=== PATIENT | male | born 1960 | race Caucasian/White ===

== ENCOUNTER 2023-06-26 09:09 | Outpatient (OUT) | payer BC, SELFPAY ==
--- NOTE | 2023-06-26 09:23 | XR_ITS ---
[address] [address] Patient Name: KWABENA TARIQ MRN: [id number] date: 1960 Sex: M Assigned Patient Location: [facility] Current Patient Location: Accession/Order Number: [id number] Exam Date: 06/26/2023 09:18 Report Date: 06/27/2023 08:54 At the request of: ANNE STOCKTON Procedure: XR shoulder RT min 2V PROCEDURE: XR shoulder RT min 2V COMPARISON: None. HISTORY: Pain In Right Shoulder M25.511 FINDINGS: BONES:No acute fracture or dislocation. Mild degenerative changes of the acromioclavicular and glenohumeral joints SOFT TISSUES:Negative. No visible soft tissue swelling. EFFUSION:None visible. OTHER: Negative. XR/XR shoulder RT min 2V IMPRESSION: Mild degenerative changes Electronically authenticated by: KWABENA ZEPEDA Date: 06/27/2023 08:54
== END 2023-06-26 09:10 | disposition home or self-care (01) ==
LOC: RAD 09:12
PROVIDERS: PCP Nurse Practitioner Family; Visit Provider Nurse Practitioner Family
DX: M25.511 Pain in right shoulder (principal)
CPT/HCPCS: 73030

== ENCOUNTER 2023-07-08 07:18 | Outpatient (OUT) | payer BC, SELFPAY ==
--- NOTE | 2023-07-08 | XR_ITS ---
The [address] [address] Patient Name: KWABENA TARIQ MRN: [id number] date: 1960 Sex: M Assigned Patient Location: [facility] Current Patient Location: [facility] Accession/Order Number: [id number] Exam Date: 07/08/2023 07:31 Report Date: 07/08/2023 07:52 At the request of: ANNE STOCKTON Procedure: XR foreign body eye Exam: X-ray foreign body EXAMINATION: 2 view orbits. HISTORY: Pre-MRI FINDINGS: No evidence of metallic foreign bodies. Osseous structures are intact. Electronically authenticated by: Carol OBRIEN Date: 07/08/2023 07:52
--- NOTE | 2023-07-08 | MR_ITS ---
[address] [address] Patient Name: KWABENA TARIQ MRN: [id number] date: 1960 Sex: M Assigned Patient Location: [facility] Current Patient Location: [facility] Accession/Order Number: [id number] Exam Date: 07/08/2023 07:39 Report Date: 07/08/2023 08:35 At the request of: ANNE STOCKTON Procedure: MR shoulder RT wo con EXAMINATION: MR shoulder RT wo con HISTORY: M25.511; Right shoulder pain COMPARISON: No relevant comparison available. TECHNIQUE: A variety of imaging planes and parameters were utilized for visualization of suspected pathology. Imaging was performed without or with contrast as indicated by examination type. FINDINGS: ROTATOR CUFF REGION CUFF TENDONS: Complete disruption of the supraspinatus tendon at its humeral head insertion with 3.0 cm retraction. CUFF MUSCLES: Moderate edema, or possibly small amount of hemorrhage within supraspinous muscle. DELTOID: Normal. No significant atrophy or tear. LONG BICEPS TENDON: No appreciable tear, retraction, or surrounding fluid. Its glenoid attachment is obscured. LABRUM/BICEPS ANCHOR SUPERIOR: No visible labral tear or biceps anchor pathology. ANTERIOR/INFERIOR: No visible tear or attrition. POSTERIOR: No posterior labrum abnormality. CAPSULE No visible capsular laxity or thickening. 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 AC LIGAMENTS: Normal acromioclavicular ligament. CC LIGAMENTS: Normal coracoclavicular ligaments. ACROMION: Normal horizontal (Type I) configuration. SUBACROMIAL BURSA: Large amount of fluid within bursa. HYALINE CARTILAGE: Normal. No visible cartilage narrowing or focal defect. OTHER BONES: Normal proximal humerus, glenoid, and coracoid. OTHER OBSERVATIONS: Negative. No other significant findings or glenohumeral effusion. MR/MR shoulder RT wo con IMPRESSION: 1. Complete tear and retraction of the supraspinatus tendon with edema or small amount of hemorrhage within supraspinatus muscle suggesting muscle injury as well. 2. Large amount of fluid within the subacromial-subdeltoid bursa secondary to supraspinatus tendon disruption. 3. Moderate degenerative changes of the acromioclavicular joint. Electronically authenticated by: RINA GARCIA Date: 07/08/2023 08:35
== END 2023-07-08 07:19 | disposition home or self-care (01) ==
LOC: RAD 07:18
PROVIDERS: PCP Nurse Practitioner Family; Visit Provider Nurse Practitioner Family
DX: M25.511 Pain in right shoulder (principal); M75.121 Complete rotator cuff tear or rupture of right shoulder, not specified as traumatic; Z77.011 Contact with and (suspected) exposure to lead
CPT/HCPCS: 70030; 73221

== ENCOUNTER 2023-08-11 16:05 | Outpatient (OUT) | payer BC, SELFPAY ==
--- OUTSIDE RECORDS SUMMARY | 2023-08-11 16:10 | XMS_ITS | CCD ---
Author Name Unknown Address [address] [place] [address] Organization [facility] Care Team Providers Care Window Caser Name Role Phone SAVANNA, DR SONG Olea Admitting Unavailable SAVANNA, DR SONG Olea Consulting Unavailable SAVANNA, DR SONG Olea Attending Unavailable MAYTE, DR WARE Primary Care Unavailable Gabby Elmore Consulting Unavailable JUSTIN, CARLY Primary Care Unavailable JESSICA, DR LUIS Terrell Admitting Unavailable JESSICA, DR LUIS Terrell Consulting Unavailable JESSICA, DR LUIS Terrell Attending Unavailable MARIO, NIMCO ROJAS Consulting Unavailable CLAUDIA, ROSA Olivera Consulting Unavailable Todd Jacome Consulting Unavailable CASIE WYMAN Consulting Unavailable SAVANNA, DR SONG Olea Admitting Unavailable SAVANNA, DR SONG Olea Attending Unavailable MAYTE, DR WARE Primary Care Unavailable MARIO, NMICO ROJAS Consulting Unavailable Todd Jacome Consulting Unavailable JANETH, DR LIM Admitting Unavailable JANETH, DR LIM Attending Unavailable JOSE, DR RINA Olea Consulting Unavailable MAYTE, DR WARE Primary Care Unavailable JANETH, DR LIM Consulting Unavailable Kath ENERGY EFFICIENCY ENGINEER-MARY, Carly Campos Primary Care Provider ELENA ESCOBEDO Attending Unavailable ELENA ESCOBEDO Attending Unavailable CARLY STOCKTON Referring Unavailable CARLY STCOKTON Primary Care Unavailable KWABENA CAMACHO Attending Unavailable KWABENA CAMACHO Referring Unavailable CARLY STOCKTON Primary Care Unavailable Allergies Allergy Classification Reported Allergen(s) Allergy Type Date of Onset Reaction(s) Facility (2 sources) Adhesive Tape-Silicones; Translations: [ADHESIVE TAPE-SILICONES] Propensity to adverse reactions to drug 08-07-2023 [facility] Medications Current Medications Medication Drug Class(es) Dates Sig (Normalized) Sig (Original) nabumetone 500 mg oral tablet (1 source) Nonsteroidal Anti-inflammatory Drug take 1 tablet by mouth in the morning, then take 1 tablet by mouth at bedtime nabumetone (RELAFEN) 500 mg tablet Take 1 tablet (500 mg total) by mouth in the morning and 1 tablet (500 mg total) before bedtime. 0 Active omega 1-vmg-kra-fish oil (Fish OiL) 300-1,000 mg capsule (1 source) take 300-1000 mg by mouth in the morning omega 1-rzw-wpq-fish oil (Fish OiL) 300-1,000 mg capsule Take 1 capsule by mouth in the morning. 0 Active selenium 50 mcg tablet (1 source) take 1 tablet by mouth in the morning selenium 50 mcg tablet Take 1 tablet (50 mcg total) by mouth in the morning. 0 Active Problems Active Problems Problem Classification Problem Date Documented Da te Episodic/Chronic E Codes: Natural/environment (2 sources) Exposure to other specified factors, initial encounter; Translations: [Other and unspecified overexertion or strenuous movements or postures, initial encounter] Onset: 12-28-2020 Episodic Other injuries and conditions due to external causes (4 sources) Food in esophagus causing other injury, initial encounter; Translations: [FOOD ESOPH CAUS OTH INJURY INIT ENC] Onset: 07-09-2021 Episodic Spondylosis; intervertebral disc disorders; other back problems (1 source) Dorsalgia, unspecified; Translations: [DORSALGIA UNSPECIFIED] Onset: 05-04-2021 Episodic Unclassified (1 source) CONTACT W/AND (SUSP) EXPOS COVID-19; Translations: [CONTACT W/AND (SUSP) EXPOS COVID-19] Onset: 07-19-2021 Past or Other Problems Problem Classification Problem Date Documented Da te Episodic/Chronic Abdominal pain (5 sources) Unspecified abdominal pain; Translations: [Flank pain] Onset: 05-02-2021 Episodic Calculus of urinary tract (4 sources) Calculus of kidney; Translations: [Personal history of urinary calculi] Onset: 05-03-2021 04-30-2022 Episodic Other connective tissue disease (3 sources) Pain in left lower leg; Translations: [PAIN IN LEFT LOWER LEG] Onset: 12-26-2020 Episodic Sprains and strains (1 source) Strain of other muscle(s) and tendon(s) at lower leg level, left leg, initial encounter; Translations: [STRAIN OTH MSC TEND LOW LT LEG INIT] Onset: 12-28-2020 Episodic Results Test Name Value Interpretation Reference Range Facility ECG 12 leadon 08-07-2023 [facility] Covid-19 PCR (CVDTB)on 06-14 SARS-CoV-2 (COVID-19) RNA LULI+probe Ql (Unsp spec) Not detected Normal NOT DETECTED [facility] Comment on above: Result Comment: When diagnostic testing is negative, the possibility of a false negative should be considered in the context of a patient's recent exposures and the presence of clinical signs and symptoms consistent with SARS-CoV-2. This test is not yet approved or cleared by the [place] Food and Drug Administration (FDA). This test was developed by [facility] [employer], [place], [place]. The performance characteristics of this test were validated by [facility]. The results are not intended to be used as the sole means for clinical diagnosis or patient management decisions. [facility] is authorized under Clinical Laboratory Improvement Amendments (CLIA) to perform high- complexity testing. This test is not yet approved or cleared by the [place] FDA. When there are no FDA-approved or cleared tests available, and other criteria are met, FDA can make tests available under an emergency access mechanism called an Emergency Use Authorization (EUA). The EUA for this test is supported by the [place] of Health and Human Service's declaration that circumstances exist to justify the emergency use of in vitro diagnostics for the detection and/or diagnosis of the virus that causes COVID-19. This EUA will remain in effect for the duration of the COVID-19 declaration justifying emergency of IVDs, unless it is terminated or revoked by the FDA (after which the test may no longer be used). Performed By: #### [facility] #### [facility] [address] [place] [address] Dr. Bill Macedo XR CHEST 1 Von 07-09-2021 XR CHEST 1 V EXAM: XR CHEST 1 V HISTORY: The patient is a 61-year-old male with epigastric pain. COMPARISON: None. FINDINGS: The lungs are well-inflated and clear with no confluent airspace infiltrates, pleural effusions, or pneumothoraces. The heart and mediastinum are within normal limits. The trachea is midline. IMPRESSION: No acute cardiopulmonary abnormalities. Electronically authenticated by: TODD JACOME Date: 2021-07-09 18:31 Normal [facility] B-Type Natriuretic Peptideon 05-04-2021 Natriuretic peptide B (Bld) [Mass/Vol] 44.0 pg/mL Normal 5-100 [facility] Comment on above: Result Comment: PERF ORMED BY: [place] [address] PATHOLOGIST COMPLIANCE ANALYST DAVIN AYOUB M.D. Performed By: #### B FUEL VERIFICATION TECHNICIAN, LACTIC, HS TROP #### [address] thoracic spine wo conon 1 CT thoracic spine wo con [facility] [place] [address] [place] [address] CT Scan Report Signed Patient: Kwabena Tariq MR#: [id number] : 1960 Acct:[id number] Age/Sex: 60 / M ADM Date: 05/04/21 Loc: ER Room: Type: [facility] ER Attending Dr: Ordering Provider: Paul Richard DO Date of Service: 05/04/21 CT/CT thoracic spine wo con: back pain ([id number]) CT/CT abdomen pelvis w con: abd pain ([id number]) CT/CT lumbar spine wo con: back pain Copies to: Paul Richard DO CT abdomen and pelvis, CT thoracic spine, and CT lumbar spine 05/04/2021. CLINICAL DATA: Left flank pain. Mid and low back pain. History of kidney stones. TECHNIQUE: CT of the abdomen and pelvis was performed with intravenous contrast and axial, sagittal, and coronal reconstructions were created and reviewed. CT of the thoracic spine and CT of the lumbar spine were performed without contrast and axial, sagittal, coronal, and 3-dimensional reconstructions were created and reviewed. These CT exams were performed using one or more of the following dose reduction techniques: Automated exposure control, adjustment of the mA and/or kV according to patient size, or use of iterative reconstruction technique. COMPARISON: None. ABDOMEN AND PELVIS FINDINGS: Images of the lower chest demonstrate mild atelectasis or scarring in the lung bases. The liver, spleen, pancreas, and both adrenal glands appear unremarkable. There is a 10 mm nonobstructing calculus in the mid to upper pole of the right kidney. Another 4 mm nonobstructing calculus is noted in the lower pole of the right kidney. There is a 3 mm nonobstructing calculus in the upper pole of the left kidney. No ureteral calculus is identified. No hydronephrosis or hydroureter is seen. No perinephric or periureteral infiltrative changes are visualized. The urinary bladder is distended and appears unremarkable. No acute intestinal abnormality is identified. The appendix appears unremarkable. No free intra-abdominal air or ascites is seen. No abdominal wall abnormality is visualized. CT/CT abdomen pelvis w con IMPRESSION: 1. Bilateral nephrolithiasis. 2. No ureteral calculus or obstructive uropathy. THORACIC SPINE FINDINGS: There is mild thoracic spinal curvature. Vertebral alignment is normal. Disc space narrowing and discovertebral degenerative changes are identified. Facet arthritis is also seen. No acute vertebral fracture is visualized. The paraspinal soft tissues appear unremarkable. LUMBAR SPINE FINDINGS: There is mild lumbar spinal curvature. Vertebral alignment is normal. Disc space narrowing and discovertebral degenerative changes are identified. Facet arthritis is also seen. No acute vertebral fracture is visualized. No spondylolysis is noted on the right or left. The sacroiliac joints are intact. IMPRESSION: 1. Mild thoracolumbar spinal curvature. 2. Disc space narrowing, discovertebral degenerative changes, and facet arthritis. 3. No acute bony abnormality. Impression dictated by: Luis Calabrese Jr., M.D.05/04/2021 3:23 PM Dictation Location: [place] [address] Transcribed By: [facility] 05/04/21 1523 Dictated By: Luis Calabrese Jr, MD 05/04/21 1504 Signed By: 05/04/21 1523 Normal [facility] Complete Blood Count Auto Di ffon 05-04-2021 Basophils (Bld) [#/Vol] 0.0 10*3/uL Normal 0.0-0.2 [facility] Comment on above: Result Comment: PERF ORMED BY: [facility] [address] [place] [address] PATHOLOGIST COMPLIANCE ANALYST DAVIN AYOUB M.D. Performed By: #### C MP, CBC, LIPASE #### [facility] [address] [place] [address] [place] Basophils/100 WBC (Bld) 0.4 % Normal . [facility] Comment on above: Performed By: #### C MP, CBC, LIPASE #### [facility] [address] Eosinophils (Bld) [#/Vol] 0.1 10*3/uL Normal 0.0-0.45 [facility] Comment on above: Performed By: #### C MP, CBC, LIPASE #### [address] Eosinophils/100 WBC (Bld) 1.6 % Normal . [facility] Comment on above: Performed By: #### C MP, CBC, LIPASE #### [address] Erythrocyte distribution width (RBC) [Ratio] 14.3 % Normal 12.0-14.8 [facility] Comment on above: Performed By: #### C MP, CBC, LIPASE #### [address] Hematocrit (Bld) [Volume fraction] 41.8 % Normal 38.8-50.0 [facility] Comment on above: Performed By: #### C MP, CBC, LIPASE #### [address] Hemoglobin (Bld) [Mass/Vol] 14.2 g/dL Normal 13.0-17.0 [facility] Comment on above: Performed By: #### C MP, CBC, LIPASE #### [place] [address] [place] Lymphocytes (Bld) [#/Vol] 1.7 10*3/uL Normal 1.00-4.8 [facility] Comment on above: Performed By: #### C MP, CBC, LIPASE #### [address] Lymphocytes/100 WBC (Bld) 31.7 % Normal . [facility] Comment on above: Performed By: #### C MP, CBC, LIPASE #### [facility] [address] MCH (RBC) [Entitic mass] 29.4 pg Normal 27.5-35.2 [facility] Comment on above: Performed By: #### C MP, CBC, LIPASE #### [facility] [address] MCV (RBC) [Entitic vol] 86.9 fL Normal 83.5-101 [facility] Comment on above: Performed By: #### C MP, CBC, LIPASE #### [address] Mean Corpuscular HGB Conc 33.8 g/dL Normal 32.5-35.6 [facility] Comment on above: Performed By: #### C MP, CBC, LIPASE #### [address] Monocytes (Bld) [#/Vol] 0.5 10*3/uL Normal 0.0-0.8 [facility] Comment on above: Performed By: #### C MP, CBC, LIPASE #### [address] Monocytes/100 WBC (Bld) 9.4 % Normal . [facility] Comment on above: Performed By: #### C MP, CBC, LIPASE #### [address] Neutrophils (Bld) [#/Vol] 3.0 10*3/uL Normal 1.8-7.7 [facility] Comment on above: Performed By: #### C MP, CBC, LIPASE #### [address] Neutrophils/100 WBC (Bld) 56.9 % Normal . [facility] Comment on above: Performed By: #### C MP, CBC, LIPASE #### [address] Nucleated RBC/100 WBC (Bld) [Ratio] 0.0 % Normal 0-0.5 [facility] Comment on above: Performed By: #### C MP, CBC, LIPASE #### [facility] [address] Platelet mean volume (Bld) [Entitic vol] 7.7 fL Normal 6.6-10.1 [facility] Comment on above: Performed By: #### C MP, CBC, LIPASE #### [facility] [address] Platelets (Bld) [#/Vol] 228 10*3/uL Normal 150-450 [facility] Comment on above: Performed By: #### C MP, CBC, LIPASE #### [address] RBC (Bld) [#/Vol] 4.82 10*6/uL Normal 3.90-5.60 [facility] Comment on above: Performed By: #### C MP, CBC, LIPASE #### [address] WBC (Bld) [#/Vol] 5.2 10*3/uL Normal 4.5-11.0 [facility] Comment on above: Performed By: #### C MP, CBC, LIPASE #### [address] Comprehensive Metabolic Pane nilda 05-04-2021 Albumin [Mass/Vol] 3.8 g/dL Normal 3.2-5.5 [facility] Comment on above: Performed By: #### C MP, CBC, LIPASE #### [address] Albumin/Globulin [Mass ratio] 1.3 {ratio} Normal [facility] Comment on above: Performed By: #### C MP, CBC, LIPASE #### [address] ALP [Catalytic activity/Vol] 70 U/L Normal 32-92 [facility] Comment on above: Performed By: #### C MP, CBC, LIPASE #### [facility] [address] ALT [Catalytic activity/Vol] 40 U/L Normal 10-60 [facility] Comment on above: Performed By: #### C MP, CBC, LIPASE #### [address] AST [Catalytic activity/Vol] 27 U/L Normal 10-42 [facility] Comment on above: Performed By: #### C MP, CBC, LIPASE #### [address] Bilirubin [Mass/Vol] 0.7 mg/dL Normal 0.3-1.2 [facility] Comment on above: Performed By: #### C MP, CBC, LIPASE #### [address] Calcium [Mass/Vol] 9.4 mg/dL Normal 8.2-10.2 [facility] Comment on above: Performed By: #### C MP, CBC, LIPASE #### [address] Chloride [Moles/Vol] 104 mmol/L Normal 95-114 [facility] Comment on above: Performed By: #### C MP, CBC, LIPASE #### [address] CO2 [Moles/Vol] 24.9 mmol/L Normal 22.0-30.0 [facility] Comment on above: Performed By: #### C MP, CBC, LIPASE #### [address] Creatinine [Mass/Vol] 1.09 mg/dL Normal 0.64-1.27 [facility] Comment on above: Performed By: #### C MP, CBC, LIPASE #### [address] Creatinine Clr Calc Pharmacy 72.55 Normal [facility] Comment on above: Performed By: #### C MP, CBC, LIPASE #### [address] Estimated GFR ( [place] > 60 Normal [facility] Comment on above: Result Comment: GFR estimated reference range: According to KDOQI guidelines, <60 ml/min/1.73m2 is sufficient to diagnose a patient with chronic kidney disease. Performed By: #### C MP, CBC, LIPASE #### [address] Estimated GFR (Non- Am > 60 Normal [facility] Comment on above: Performed By: #### C MP, CBC, LIPASE #### [address] Globulin (S) [Mass/Vol] 2.9 g/dL Normal [facility] Comment on above: Performed By: #### C MP, CBC, LIPASE #### [address] Glucose [Mass/Vol] 87 mg/dL Normal 70-100 [facility] Comment on above: Result Comment: [facility] Glucose Reference Range is dependent on time and content of last meal. Glucose of more than 200 mg/dL in a nonstressed, ambulatory subject supports the diagnosis of Diabetes Mellitus. ADA recommended reference range Performed By: #### C MP, CBC, LIPASE #### [address] Potassium [Moles/Vol] 4.4 mmol/L Normal 3.5-5.1 [facility] Comment on above: Performed By: #### C MP, CBC, LIPASE #### [address] Protein [Mass/Vol] 6.7 g/dL Normal 6.1-7.9 [facility] Comment on above: Performed By: #### C MP, CBC, LIPASE #### [address] Sodium [Moles/Vol] 136 mmol/L Normal 136-146 [facility] Comment on above: Performed By: #### C MP, CBC, LIPASE #### [address] Urea nitrogen [Mass/Vol] 27 mg/dL High 9-23 [facility] Comment on above: Performed By: #### C MP, CBC, LIPASE #### [address] Lactic Acidon 05-04-2021 Lactate [Moles/Vol] 1.1 mmol/L Normal 0.5-2.2 [facility] Comment on above: Result Comment: PERF ORMED BY: [place] [address] PATHOLOGIST COMPLIANCE ANALYST DAVIN AYOUB M.D. Performed By: #### B FUEL VERIFICATION TECHNICIAN, LACTIC, HS TROP #### [address] Lipaseon 05-04-2021 Lipase [Catalytic activity/Vol] 20.0 U/L Low [facility] Comment on above: Result Comment: PERF ORMED BY: [place] [address] PATHOLOGIST COMPLIANCE ANALYST DAVIN AYOUB M.D. Performed By: #### C MP, CBC, LIPASE #### [address] Troponin I High Sensitivityo n 05-04-2021 Troponin I High Sensitivity 5 pg/mL Normal 0-20 [facility] Comment on above: Result Comment: PERF ORMED BY: [place] [address] PATHOLOGIST COMPLIANCE ANALYST DAVIN AYOUB M.D. Performed By: #### B FUEL VERIFICATION TECHNICIAN, LACTIC, HS TROP #### [address] Urinalysison 05-04-2021 Appearance (U) Clear Normal Clear [facility] Comment on above: Order Comment: Name Collection Type:: Clean-Voided Midstream Performed By: #### U A #### [address] Bilirubin,Urine Negative Normal Negative [facility] Comment on above: Order Comment: Name Collection Type:: Clean-Voided Midstream Performed By: #### U A #### [facility] [address] [place] [address] [place] Color (U) Yellow Normal Yellow [facility] Comment on above: Order Comment: Name Collection Type:: Clean-Voided Midstream Performed By: #### U A #### [address] Glucose Ql (U) Normal Normal Normal [facility] Comment on above: Order Comment: Name Collection Type:: Clean-Voided Midstream Performed By: #### U A #### [address] Ketones Ql (U) Negative Normal Negative [facility] Comment on above: Order Comment: Name Collection Type:: Clean-Voided Midstream Performed By: #### U A #### [address] Leukocyte esterase Test strip Ql (U) Negative Normal Negative [facility] Comment on above: Order Comment: Name Collection Type:: Clean-Voided Midstream Performed By: #### U A #### [place] [address] [place] Nitrite,Urine Negative Normal Negative [facility] Comment on above: Order Comment: Name Collection Type:: Clean-Voided Midstream Performed By: #### U A #### [place] [address] [place] Occult Blood,Urine Negative Normal Negative [facility] Comment on above: Order Comment: Name Collection Type:: Clean-Voided Midstream Result Comment: PERF ORMED BY: [place] [address] PATHOLOGIST COMPLIANCE ANALYST DAVIN AYOUB M.D. Performed By: #### U A #### [place] [address] [place] pH (U) 5.5 [pH] Normal 5.0-9.0 [facility] Comment on above: Order Comment: Name Collection Type:: Clean-Voided Midstream Performed By: #### U A #### [facility] [address] Protein,Urine Negative Normal Negative [facility] Comment on above: Order Comment: Name Collection Type:: Clean-Voided Midstream Performed By: #### U A #### [address] Specificy [place],Urine 1.005 Normal 1.001-1.030 [facility] Comment on above: Order Comment: Name Collection Type:: Clean-Voided Midstream Performed By: #### U A #### [address] Urobilinogen,Urin e Normal Normal Normal [facility] Comment on above: Order Comment: Name Collection Type:: Clean-Voided Midstream Performed By: #### U A #### [address] CBC AUTO DIFFon 05-02-2021 BASO # 0.0 103/ul Normal 0.0-0.1 [facility] Comment on above: Performed By: #### C BC #### [facility] [address] [place] [address] [address] Bill Macedo Basophils/100 WBC (Bld) 0.1 % Critically low 0.2-2.0 [facility] Comment on above: Performed By: #### C BC #### [facility] [address] [place] [address] [address] Bill Macedo EO # 0.0 103/ul Normal 0.0-0.7 [facility] Comment on above: Performed By: #### C BC #### [facility] [address] [place] [address] [address] Bill Macedo Eosinophils/100 WBC (Bld) 0.4 % Critically low 0.9-7.0 [facility] Comment on above: Performed By: #### C BC #### [facility] [address] [place] [address] [address] Bill Macedo Erythrocyte distribution width (RBC) [Ratio] 13.1 % Normal 11.0-15.0 [facility] Comment on above: Performed By: #### C BC #### [facility] [address] [place] [address] [address] Bill Macedo Hematocrit (Bld) [Volume fraction] 43.3 % Normal 42.0-54.0 [facility] Comment on above: Performed By: #### C BC #### [facility] [address] [place] [address] [address] Bill Macedo Hemoglobin (Bld) [Mass/Vol] 14.8 g/dL Normal 14.0-18.0 [facility] Comment on above: Performed By: #### C BC #### [facility] [address] [place] [address] Dr. Bill Macedo IG # 0.02 10e3/ul Normal 0.00-0.03 [facility] Comment on above: Performed By: #### C BC #### [facility] [address] [place] [address] Dr. Bill Macedo IG % 0.3 % Normal 0.0-0.5 [facility] Comment on above: Performed By: #### C BC #### [facility] [address] [place] [address] Dr. Bill Macedo LYMPH # 1.0 103/ul Critically low 1.2-3.8 [facility] Comment on above: Performed By: #### C BC #### [facility] [address] [place] [address] Dr. Bill Macedo Lymphocytes/100 WBC (Bld) 14.3 % Critically low 20.5-60.0 [facility] Comment on above: Performed By: #### C BC #### [facility] [address] [place] [address] Dr. Bill Macedo MANUAL DIFF REQ NO Normal [facility] Comment on above: Performed By: #### C BC #### [facility] [address] [place] [address] Dr. Bill Macedo MCH (RBC) [Entitic mass] 29.1 pg Normal 25.9-34.0 [facility] Comment on above: Performed By: #### C BC #### [facility] [address] [place] [address] [address] Bill Macedo MCHC (RBC) [Mass/Vol] 34.2 g/dL Normal 29.9-35.2 [facility] Comment on above: Performed By: #### C BC #### [facility] [address] [place] [address] [address] Bill Macedo MCV (RBC) [Entitic vol] 85.2 fL Normal 80.0-94.0 [facility] Comment on above: Performed By: #### C BC #### [facility] [address] [place] [address] [address] Bill Macedo MONO # 0.4 103/ul Normal 0.3-0.8 [facility] Comment on above: Performed By: #### C BC #### [facility] [address] [place] [address] Dr. Bill Macedo Monocytes/100 WBC (Bld) 6.4 % Normal 1.7-12.0 [facility] Comment on above: Performed By: #### C BC #### [facility] [facility] [address] [place] [address] Dr. Bill Macedo NEUT # 5.4 103/ul Normal 1.4-6.5 [facility] Comment on above: Performed By: #### C BC #### [facility] [address] [place] [address] Dr. Bill Macedo Neutrophils/100 WBC (Bld) 78.5 % Critically high 43.0-75.0 [facility] Comment on above: Performed By: #### C BC #### [facility] [address] [place] [address] Dr. Bill Macedo Platelet mean volume (Bld) [Entitic vol] 9.4 fL Critically low 9.5-13.5 [facility] Comment on above: Performed By: #### C BC #### [facility] [address] [place] [address] Dr. Bill Macedo PLT 239 103/ul Normal 150-450 [facility] Comment on above: Performed By: #### C BC #### [facility] [address] [place] [address] Dr. Bill Macedo RBC 5.08 106/ul Normal 4.70-6.10 [facility] Comment on above: Performed By: #### C BC #### [facility] [address] [place] [address] Dr. Bill Macedo WBC 6.9 103/ul Normal 4.0-11.0 [facility] Comment on above: Performed By: #### C BC #### [facility] [address] [place] [address] Dr. Bill Macedo BASO # 0.0 103/ul Normal 0.0-0.1 [facility] Comment on above: Performed By: #### C BC #### [facility] [address] [place] [address] Dr. Bill Macedo Basophils/100 WBC (Bld) 0.2 % Normal 0.2-2.0 [facility] Comment on above: Performed By: #### C BC #### [facility] [address] [place] [address] Dr. Bill Macedo EO # 0.1 103/ul Normal 0.0-0.7 [facility] Comment on above: Performed By: #### C BC #### [facility] [address] [place] [address] Dr. Bill Macedo Eosinophils/100 WBC (Bld) 0.7 % Critically low 0.9-7.0 [facility] Comment on above: Performed By: #### C BC #### [facility] [address] [place] [address] Dr. Bill Macedo Erythrocyte distribution width (RBC) [Ratio] 13.2 % Normal 11.0-15.0 [facility] Comment on above: Performed By: #### C BC #### [facility] [address] [place] [address] Dr. Bill Macedo Hematocrit (Bld) [Volume fraction] 44.4 % Normal 42.0-54.0 [facility] Comment on above: Performed By: #### C BC #### [facility] [address] [place] [address] Dr. Bill Macedo Hemoglobin (Bld) [Mass/Vol] 14.9 g/dL Normal 14.0-18.0 [facility] Comment on above: Performed By: #### C BC #### [facility] [address] [place] [address] Dr. Bill Macedo IG # 0.02 10e3/ul Normal 0.00-0.03 [facility] Comment on above: Performed By: #### C BC #### [facility] [address] [place] [address] Dr. Bill Macedo IG % 0.2 % Normal 0.0-0.5 [facility] Comment on above: Performed By: #### C BC #### [facility] [address] [place] [address] Dr. Bill Macedo LYMPH # 1.0 103/ul Critically low 1.2-3.8 The [facility] Comment on above: Performed By: #### C BC #### [facility] [address] [place] [address] Dr. Bill Macedo Lymphocytes/100 WBC (Bld) 11.9 % Critically low 20.5-60.0 [facility] Comment on above: Performed By: #### C BC #### [facility] [address] [place] [address] Dr. Bill Macedo MANUAL DIFF REQ NO Normal [facility] Comment on above: Performed By: #### C BC #### [facility] [address] [place] [address] Dr. Bill Macedo MCH (RBC) [Entitic mass] 28.8 pg Normal 25.9-34.0 [facility] Comment on above: Performed By: #### C BC #### [facility] [address] [place] [address] Dr. Bill Macedo MCHC (RBC) [Mass/Vol] 33.6 g/dL Normal 29.9-35.2 [facility] Comment on above: Performed By: #### C BC #### [facility] [address] [place] [address] Dr. Bill Macedo MCV (RBC) [Entitic vol] 85.7 fL Normal 80.0-94.0 [facility] Comment on above: Performed By: #### C BC #### [facility] [address] [place] [address] Dr. Bill Macedo MONO # 0.4 103/ul Normal 0.3-0.8 [facility] Comment on above: Performed By: #### C BC #### [facility] [address] [place] [address] Dr. Bill Macedo Monocytes/100 WBC (Bld) 5.2 % Normal 1.7-12.0 [facility] Comment on above: Performed By: #### C BC #### [facility] [address] [place] [address] Dr. Bill Macedo NEUT # 6.6 103/ul Critically high 1.4-6.5 [facility] Comment on above: Performed By: #### C BC #### [facility] [address] [place] [address] Dr. Bill Macedo Neutrophils/100 WBC (Bld) 81.8 % Critically high 43.0-75.0 [facility] Comment on above: Performed By: #### C BC #### [facility] [address] [place] [address] Dr. Bill Macedo Platelet mean volume (Bld) [Entitic vol] 9.6 fL Normal 9.5-13.5 [facility] Comment on above: Performed By: #### C BC #### [facility] [address] [place] [address] Dr. Bill Macedo PLT 271 103/ul Normal 150-450 [facility] Comment on above: Performed By: #### C BC #### [facility] [address] [place] [address] Dr. Bill Macedo RBC 5.18 106/ul Normal 4.70-6.10 [facility] Comment on above: Performed By: #### C BC #### [facility] [address] [place] [address] Dr. Bill Macedo WBC 8.1 103/ul Normal 4.0-11.0 [facility] Comment on above: Performed By: #### C BC #### [facility] [address] ABD/PELVIS WO CONon 05-02 CT ABD/PELVIS WO CON EXAM: CT ABD/PELVIS WO CON 05/02/2021 3:41 AM EDT OH001 CLINICAL STATEMENT: CALCULUS OF KIDNEY COMPARISON: 12/14/2019 TECHNIQUE: Helically acquired images were obtained of the abdomen and pelvis without IV contrast. No oral contrast was administered. AEC is utilized. 2-D reconstructed images are provided. FINDINGS: Gallbladder is unremarkable. There are bilateral nonobstructive renal calculi measuring up to 8 mm on the right and 2 mm on the left. There is no hydronephrosis or hydroureter. The upper abdominal solid organs are unremarkable. There is no bowel obstruction or free air. There is no ascites. There is no evidence of aortic aneurysm. There is no retroperitoneal adenopathy. There is no appendicitis or diverticulitis. There are no pelvic masses or loculated fluid collections. The lung bases are clear. Degenerative changes lumbosacral spine. There are no destructive bone lesions identified. IMPRESSION: Bilateral nonobstructive renal calculi measuring up to 8 mm on the right and 2 mm on the left. No hydronephrosis or hydroureter. FOLLOW-UP: Follow-up as clinically indicated. Electronically authenticated by: GABBY SAID Date: 2021-05-02 04:38 Normal [facility] ER URINE PROFILEon Bilirubin Ql (U) Negative Normal NEGATIVE The [facility] Comment on above: Performed By: #### E RUR #### [facility] [address] [place] [address] Dr. Bill Macedo Clarity (U) CLEAR Normal CLEAR [facility] Comment on above: Performed By: #### E RUR #### [facility] [address] [place] [address] Dr. Bill Macedo Color (U) YELLOW Normal YELLOW [facility] Comment on above: Performed By: #### E RUR #### [facility] [address] [place] [address] Dr. Bill Macedo ERUAHD A micrscopic examination will be performed if indicated. Normal [facility] Comment on above: Performed By: #### E RUR #### [facility] [address] [place] [address] Dr. Bill Macedo Glucose Ql (U) Negative Normal NEGATIVE [facility] Comment on above: Performed By: #### E RUR #### [facility] [address] [place] [address] Dr. Bill Macedo Hemoglobin Ql (U) Negative Normal NEGATIVE [facility] Comment on above: Performed By: #### E RUR #### [facility] [address] [place] [address] Dr. Bill Macedo Ketones Ql (U) 15 mg/dl Abnormal NEGATIVE [facility] Comment on above: Performed By: #### E RUR #### [facility] [address] [place] [address] Dr. Bill Macedo LEUKOCYTES Negative Normal NEGATIVE [facility] Comment on above: Performed By: #### E RUR #### [facility] [address] [place] [address] Dr. Bill Macedo Nitrite Ql (U) Negative Normal NEGATIVE [facility] Comment on above: Performed By: #### E RUR #### [facility] [address] [place] [address] Dr. Bill Macedo pH (U) 7.0 [pH] Normal 5-9 [facility] Comment on above: Performed By: #### E RUR #### [facility] [address] [place] [address] Dr. Bill Macedo SPEC GRAVITY 1.020 Normal 1.005-<=1.025 [facility] Comment on above: Performed By: #### E RUR #### [facility] [address] [place] [address] Dr. Bill Macedo UA PROTEIN Negative Normal NEGATIVE/ TRACE [facility] Comment on above: Performed By: #### E RUR #### [facility] [address] [place] [address] Dr. Bill Macedo UR MICRO IND NOT INDICATED Normal [facility] Comment on above: Performed By: #### E RUR #### [facility] [address] [place] [address] Dr. Bill Macedo Urobilinogen Qn (U) 0.2 {Carlos'U}/dL Normal 0.2 - 1.0 [facility] Comment on above: Performed By: #### E RUR #### [facility] [address] [place] [address] Dr. Bill Macedo PROF 14(COMP METB)on 021 Albumin [Mass/Vol] 4.2 g/dL Normal 3.5-5.0 [facility] Comment on above: Performed By: #### E RUR #### [facility] [address] [place] [address] Dr. Bill Macedo Albumin/Globulin [Mass ratio] 1.0 {ratio} Normal [facility] Comment on above: Performed By: #### E RUR #### [facility] [address] [place] [address] Dr. Bill Macedo ALP [Catalytic activity/Vol] 93 U/L Normal 38-126 [facility] Comment on above: Performed By: #### E RUR #### [facility] [address] [place] [address] Dr. Bill Macedo ALT [Catalytic activity/Vol] 43 U/L Normal 21-72 [facility] Comment on above: Performed By: #### E RUR #### [facility] [address] [place] [address] Dr. Bill Macedo Anion gap [Moles/Vol] 14.6 mmol/L Normal [facility] Comment on above: Performed By: #### E RUR #### [facility] [address] [place] [address] Dr. Bill Macedo AST [Catalytic activity/Vol] 25 U/L Normal 17-59 [facility] Comment on above: Performed By: #### E RUR #### [facility] [address] [place] [address] Dr. Bill Macedo Bilirubin [Mass/Vol] 1.1 mg/dL Normal 0.2-1.3 [facility] Comment on above: Performed By: #### E RUR #### [facility] [address] [place] [address] Dr. Bill Macedo Calcium [Mass/Vol] 9.5 mg/dL Normal 8.4-10.2 [facility] Comment on above: Performed By: #### E RUR #### [facility] [address] [place] [address] Dr. Bill Macedo Chloride [Moles/Vol] 99 mmol/L Normal 98-107 [facility] Comment on above: Performed By: #### E RUR #### [facility] [address] [place] [address] Dr. Bill Macedo CO2 [Moles/Vol] 23.2 mmol/L Normal 22.0-30.0 [facility] Comment on above: Performed By: #### E RUR #### [facility] [address] [place] [address] Dr. Bill Macedo Creatinine [Mass/Vol] 0.94 mg/dL Normal 0.66-1.25 [facility] Comment on above: Performed By: #### E RUR #### [facility] [address] [place] [address] Dr. Bill Macedo EGFR-AF [place] >60 Normal >=60 [facility] Comment on above: Performed By: #### E RUR #### [facility] [address] [place] [address] Dr. Bill Macedo EGFR-NON AF [place] >60 Normal >=60 [facility] Comment on above: Performed By: #### E RUR #### [facility] [address] [place] [address] Dr. Bill Macedo Globulin (S) [Mass/Vol] 4.0 g/dL Normal [facility] Comment on above: Performed By: #### E RUR #### [facility] [address] [place] [address] Dr. Bill Macedo Glucose [Mass/Vol] 128 mg/dL Critically high 74-106 [facility] Comment on above: Performed By: #### E RUR #### [facility] [address] [address] [address] Bill Macedo Potassium [Moles/Vol] 3.8 mmol/L Normal 3.4-5.0 [facility] Comment on above: Performed By: #### E RUR #### [facility] [address] [place] [address] Dr. Bill Macedo Protein [Mass/Vol] 8.2 g/dL Normal 6.1-8.2 [facility] Comment on above: Performed By: #### E RUR #### [facility] [address] [place] [address] Dr. Bill Macedo Sodium [Moles/Vol] 133 mmol/L Critically low 137-145 [facility] Comment on above: Performed By: #### E RUR #### [facility] [address] [place] [address] Dr. Bill Macedo Urea nitrogen [Mass/Vol] 15.0 mg/dL Normal 9.0-20.0 [facility] Comment on above: Performed By: #### E RUR #### [facility] [address] [place] [address] Dr. Bill Macedo Urea nitrogen/Creatini ne [Mass ratio] 16.0 mg/mg Normal [facility] Comment on above: Performed By: #### E RUR #### [facility] [address] [place] [address] Dr. Bill Macedo PROF CHEM 8 (BAS METB)on Anion gap [Moles/Vol] 14.5 mmol/L Normal [facility] Comment on above: Performed By: #### B MP #### [facility] [address] [place] [address] Dr. Bill Macedo Calcium [Mass/Vol] 8.9 mg/dL Normal 8.4-10.2 [facility] Comment on above: Performed By: #### B MP #### [facility] [address] [place] [address] Dr. Bill Macedo Chloride [Moles/Vol] 97 mmol/L Critically low 98-107 [facility] Comment on above: Performed By: #### B MP #### [facility] [address] [address] [address] Bill Macedo CO2 [Moles/Vol] 24.4 mmol/L Normal 22.0-30.0 [facility] Comment on above: Performed By: #### B MP #### [facility] [address] [address] [address] Bill Macedo Creatinine [Mass/Vol] 0.93 mg/dL Normal 0.66-1.25 [facility] Comment on above: Performed By: #### B MP #### [facility] [address] [address] [address] Bill Macedo EGFR-AF [place] >60 Normal >=60 [facility] Comment on above: Performed By: #### B MP #### [facility] [address] [place] [address] Dr. Bill Macedo EGFR-NON AF [place] >60 Normal >=60 [facility] Comment on above: Performed By: #### B MP #### [facility] [address] [address] [address] Bill Macedo Glucose [Mass/Vol] 107 mg/dL Critically high 74-106 [facility] Comment on above: Performed By: #### B MP #### [facility] [address] [address] [address] Bill Macedo Potassium [Moles/Vol] 3.9 mmol/L Normal 3.4-5.0 [facility] Comment on above: Performed By: #### B MP #### [facility] [address] [address] [address] Bill Macedo Sodium [Moles/Vol] 132 mmol/L Critically low 137-145 [facility] Comment on above: Performed By: #### B MP #### [facility] [address] [address] [address] Bill Macedo Urea nitrogen [Mass/Vol] 13.0 mg/dL Normal 9.0-20.0 [facility] Comment on above: Performed By: #### B MP #### [facility] [address] [place] [address] Dr. Bill Macedo Urea nitrogen/Creatini ne [Mass ratio] 14.0 mg/mg Normal [facility] Comment on above: Performed By: #### B #### [facility] [address] [place] [address] Dr. Bill Macedo XR KUB 1 VIEWon 05-02-2021 XR KUB 1 VIEW EXAMINATION: XR KUB 1 VIEW HISTORY: Kidney stone left side COMPARISON: CT abdomen pelvis 05/02/2021 4:19 AM FINDINGS: KIDNEY/URETER - RIGHT: 7 mm calcification projecting over right renal hilum. KIDNEY/URETER - LEFT: No visible renal or ureteral calcifications. PELVIS: No visible ureteral stones. BOWEL: No abnormal dilation or deviation. BONES: No acute abnormality. OTHER: Negative. No abnormal gaseous collections. IMPRESSION: 1. Right nephrolithiasis, not appreciably moved from within the right kidney when compared to today's CT study. Electronically authenticated by: RINA GARCIA Date: 2021-05-02 15:54 Normal [facility] XR TIB_FIB LT 2Von XR TIB_FIB LT 2V EXAM: XR TIB_FIB LT 2V HISTORY: The patient is a 60-year-old male with left lower leg pain after stomping tonight. COMPARISON: None. FINDINGS: The left tibia and fibula are radiographically negative with no evidence of fracture, cortical lucencies, periosteal reactions, or other osseous or articular abnormalities. Incidentally noted is evidence of osteoarthritis of the left knee joint. There appears to be chondrocalcinosis or perhaps an ununited ossicle within the lateral compartment. This could be better evaluated with dedicated knee radiographs. IMPRESSION: 1. Radiographically negative left tibia and fibula. 2. Osteoarthritis of the left knee, and this could be better evaluated with knee radiographs. Electronically authenticated by: TODD JACOME Date: 2020-12-26 21:10 Normal [facility] Vital Signs Date Time Vital Sign Value Performing Clinician Ashwin goddard 08-07-2023 15:14-0500 Body height 175.3 cm [facility] [address] [facility] 08-07-2023 15:14-0500 Body mass index (BMI) [Ratio] 29.24 kg/m2 [facility] 2 [facility] 08-07-2023 15:14-0500 Body weight 89.81 kg [facility] 2 [facility] Encounters Encounter Date Encounter Type Care Provider Facility Start: 08-07-2023 End: 08-08-[address] [facility] Start: 08-07-2023 Encounter for other preprocedural examination CARLY DOWMER [facility] Start: 08-07-2023 End: 08-07-2023 ambulatory ELENA ESCOBEDO Not Available Start: 08-07-2023 End: 08-07-2023 Patient encounter procedure [facility] Pre-Admission Testing 2 [facility] - Pre Admit Comment on above: Preop examination (P rimary Dx) Start: 08-07-2023 End: 08-07-2023 Preprocedural examination done [facility] 2 [facility] Start: 07-10-2023 End: 07-10-2023 ambulatory ELENA ESCOBEDO Not Available Start: 07-09-2021 End: 07-09-2021 ambulatory CARLY ANDERSON Facility:[facility] Start: 05-02-2021 End: 05-02-[address] CARINA FOWLER Facility:[facility] Start: 05-02-2021 End: 05-02-[address] SONG CORRALES Facility:[facility] Start: 12-26-2020 End: 12-26-[address] SONG CORRALES Facility:[facility] Plan of Treatment Date Care Activity Detail Author Start: 08-07-2024 Adult BMI Screening Adult BMI Screen ing [facility] Start: 08-07-2024 Tobacco Screening Tobacco Screening [facility] Start: 09-03-2023 End: 09-03-2023 Admission to same day surgery center 09/03/2023 12:45 PM EST - 09/03/2023 2:30 PM EST Surgery [facility] - Surgery [address] [place] [address] Elena Escobedo, DO [address] [facility] [address] [place] [address] ARTHROSCOPIC REPAIR ROTATOR CUFF SHOULDER [25023 (CPT )] [facility] Comment on above: ARTHROSCOPIC REPAIR ROTATOR CUFF SHOULDER [26914 (CPT )] Start: 09-03-2023 End: 09-03-2023 Anesthesia consultation 09/03/2023 12:45 PM EST Anesthesia Event [facility] [address] [place] [id number] Javier Robertson MD [address] [place] [address] [facility] Start: 09-03-2023 End: 09-03-2023 Arthroscopy shoulder rotator cuff repair ARTHROSCOPIC REPAIR ROTATOR CUFF SHOULDER right shoulder rotator cuff tear 09/03/2023 12:45 PM EST [facility] Start: 09-03-2023 Subsequent hospital visit by physician 09/03/2023 12:45 PM EST Hospital Encounter [facility] [address] [place] [address] Elena Escobedo, [address] [facility] [address] [place] [address] [facility] Start: 2023 Fall Risk Screening Fall Risk Screen ing [facility] Start: 03-14-2023 Influenza vaccination Influenza Vacc ine [facility] Start: 2008 Administration of varicella zoster vaccine Zoster (Shingles) Vaccine (1 of 2) [facility] Start: 1977 DTaP,Tdap and Td Vac cines (1 - Tdap) DTaP,Tdap and Td Vaccines (1 - Tdap) [facility] Start: 1976 Adult BMI Follow Up Plan Adult BMI Follow Up Plan [facility] Start: 1970 Depression Screening Depression Scre kristine [facility] Payers Date Payer Category Payer Unknown [employer] OUT OF STATE PPO/TRUST [id number] 2020-Present [phone] [address] [place] [address] [id number] 1959 Unknown [id number] 1958 Unknown [id number] 1958 Unknown [id number] 1958 Unknown [id number] 1958 Unknown [id number] 1958 Unknown [id number] 1958 Unknown [id number] 1958 Unknown [id number] 1958 Unknown [id number] Social History Date Type Detail Facility Start: 08-07-2023 Tobacco smoking stat [facility] Never smoked tobacco [facility] Start: 08-07-2023 Tobacco use and exposure Smokeless tobacco non-user [facility] Start: 08-07-2023 Alcohol intake Current drinke r of alcohol (finding) [facility] Start: 12-23-2018 End: 08-07-2023 Alcohol intake [facility] Start: 12-23-2018 End: 08-07-2023 Tobacco use panel [facility] Childcare Unknown [facility] Start: 1960 Sex Assigned At Not on file P [facility] Instructions 08-07-2023 Patient Instructions Note Date & Type Note Facility 08-07-2023 Instructions Barbra Morris RN - 08/07/2023 3:00 PM EST Preoperative Education Checklist- General Surgery date: 09/03/23 Surgery time: 1245p Arrival time: 1045a 1. Bring a photo ID and your insurance card with you the day of surgery. You will check in at the main lobby of the [facility]- registration desk is straight ahead as soon as you walk in. Tell them you are here for surgery. 2. If you have a Living Will/Durable Power of Division Manager for Health Care that is not on file here, please bring a copy the day of surgery. 3. Please shower/bathe the night before surgery with the provided soap or wipes. Do not shower the morning of surgery- you will do use wipes when you arrive here at the hospital before getting into your surgical gown. Do not shave the area of your procedure for 2 days prior to your surgery. 4. NO powder, lotion, perfume/cologne, aftershave, make-up, deodorant, or hair products after you have bathed. 5. NO nail lithuanian/acrylic on at least one finger. If you are having a hand, wrist or foot surgery then all nail lithuanian and artificial/acrylic nails must be removed from that hand or foot. 6. Avoid ALL Aspirin and non-steroidal anti-inflammatory drugs and certain vitamins (Ibuprofen, Advil, Aleve, Excedrin, Meloxicam, Celebrex, fish/krill oil, etc.) for 7 days prior to surgery as instructed by your surgeon and/or your prescribing doctor. Tylenol IS ALLOWED. If you are on Ticlid, Xarelto, Eliquis, Pradaxa, Plavix or Coumadin, please check with your prescribing doctor for instructions for when to stop them. 7. If you use an inhaler, continue to use it routinely. 8. Nothing to eat or drink (not even water, gum, mints, or hard candy!) AFTER midnight prior to your surgery. 9. Take only medications that you are instructed to on the morning of surgery with a TINY SIP OF WATER. 10. Choose a responsible adult that will be able to drive you home when you are discharged from your hospital stay for your surgery and can stay with you in your home for 24 hours after your procedure. You must NOT drive any vehicle or operate any machinery for 24 hours after surgery. 11. When you dress for your appointment, please wear loose fitting clothing that is appropriate to accommodate your surgical area procedure. BRING WITH YOU ANY DEVICES YOU MAY NEED: JESSY hose, ice machine, sling/swath, brace or special shoe, oversized zip-up or button up shirt, CPAP machine if staying overnight. 12. Do NOT wear jewelry, watches, or any piercings or metal for surgery- leave these valuables and money at home. 13. Do NOT wear contact lenses for surgery- glasses are okay if needed. 14. The anesthesiologist will talk with you the day of surgery and will ask you to sign a Consent Form. 15. Refrain from smoking or any type of tobacco use for at least 8 hours and marijuana for 24 hours prior to arrival for your surgery. 16. If a GREEN BLOOD band is given to you, please bring it with you for the day of surgery. 17. Notify your surgeon if you develop any illness before your surgery. 18. If you are staying overnight, please DO NOT BRING your home medications with you. 19. If you have any questions prior to surgery, please call the [facility] office at [phone], Mon.-Fri. 7 a.m.-3 p.m. Leave a voicemail if needed. Pre-Surgery Instructions: Medication Instructions nabumetone (RELAFEN) 500 mg tablet Stop taking 1 week prior to procedure omega 0-icu-syv-fish oil (Fish OiL) 300-1,000 mg capsule Stop taking 1 week prior to procedure selenium 50 mcg tablet Stop taking 0 days prior to procedure How to Avoid an Infection after Your Surgery Your doctor will give you specific instructions, but remember: -ALWAYS wash hands before caring for your incision. -No picking, scratching, or rubbing your incision. -No creams, lotion, powder, rubbing alcohol or hydrogen peroxide on the incision (can harm the tissue and slow healing). -Your doctor will give you specific instructions for what type of dressing you will need and how often it will need changed for infection purposes. -No tight clothing on incision. -Do not allow anyone to touch your incision unless they are cleaning, checking, or redressing it (be sure they wash their hands first). -No contact of your incision with pets; avoid sleeping with pets. -Take full course of antibiotic if prescribed for you after surgery- do not stop unless directed to by your physician. You may also be given an antibiotic prior to your surgery to help prevent surgical site infections. -Eat a healthy and varied diet including proteins, fruits, and vegetables to help promote wound healing and keep blood sugars under control if you are diabetic. -Smoking slows the healing process by decreasing the amount of oxygen in your blood that is needed for tissue healing. Try to avoid or stop smoking if possible. LOOK at your incision each morning and each night to check the progress of healing. Some soreness, numbness, itching and/or mild bruising around the incision is normal. Call your doctor if you notice any of the following: -Increased redness or hardening around the incision area. -Increased pain at the incision site. -Incision feels hot to the touch. -Swelling or pulling apart of the incision edges. -Yellow or green drainage or foul odor coming from the incision. -Bleeding from the incision (apply pressure as needed). -Fever higher than 101 degrees Fahrenheit for more than 4 hours. SHOWERING: Your doctor will give you specific instructions, but remember: -Be careful getting into and out of the shower. -Showers should be quick (5 minutes or less). -Use a clean washcloth to gently wash your incision with soap and water and pat the area dry with a clean towel. -No re-using wash cloths or towels; get a fresh one to clean your incision. -Do not soak in the bathtub, go swimming or use a hot tub (Jacuzzi), or perform activities where your hand or arm are submerged in water or exposed to any fluids or substances (washing dishes, cooking, gardening, hunting, etc.) until instructed by your doctor. -If your have the sticky strips (steri-strips) over the incision, it is OK to shower with them. Do not remove them. Let them fall off on their own. If you have a question, call your doctor s office. Go to the follow-up appointment with your doctor. documented in this encounter [facility] Consultation note 07-09-2021 Note Date & Type Note Facility 07-09-2021 Note ER CONSULTATION Consultation Date: 07-09-21 CHIEF COMPLAINT: Food bolus in the esophagus. HISTORY OF PRESENT ILLNESS: The patient is a 61 year-old man who presented to the ER for evaluation of epigastric discomfort after eating chicken this afternoon for lunch. It feels like it's stuck in his upper abdomen, He is able to swallow some secretions and saliva, however, when he dries to drink anything he hiccups and brings the fluid back up. Denies any dyspnea, cough or wheezing. REVIEW OF SYSTEMS: Constitutional, denies any fevers or chills. Skin denies rashes or jaundice. HEENT denies blurring, double vision, loss of vision, ear pain, ear discharge, nasal discharge, sore throat, or hoarseness, food bolus in the esophagus. GI, epigastric and abdominal pain. denies dysuria, hesitancy or urgency. Musculoskeletal no arthralgias or myalgias. Neuro/psych, denies depression or anxiety. PHYSICAL EXAM: VITALS:Afebrile, temperature 97.5, heart rate 94, blood pressure 154/98, O2 sat 99% on room air, respiratory rate 18, BMI 29. GENERAL:No acute distress. HEENT:Normocephalic, atraumatic, PERRLA. EOMI, no otorrhea or rhinorrhea. Throat without exudate, mucous membranes are moist. NECK:Supple, no lymphadenopathy, no JVD, thyroid is not enlarged. CARDIOVASCULAR:Regular rate and rhythm without murmurs, subs, or gallops. LUNGS:Clear to auscultation bilaterally. No wheezes, rhonchi or crackles. ABDOMEN:Soft, nontender, nondistended. Positive bowel sounds, no hepatosplenomegaly. EXTREMITIES:Warm, no clubbing, cyanosis or edema. NEURO:CN's II-XII grossly intact. The patient is alert and oriented x3. ASSESSMENT:Food bolus in the esophagus. PLAN: The patient will undergo dislodgement of the food bolus via EGD. The patient will be discharged home afterwards. [facility] Signed and Approved by: DR LUIS LOPEZ . 07/10/2021 14:36:00 [facility] Clinical Note 07-09-2021 Note Date & Type Note Facility 07-09-2021 Note OPERATIVE NOTE OPERATION DATE: 07-09-21 ANESTHETIC:General. PREOPERATIVE DIAGNOSIS: Food bolus in the esophagus. POSTOPERATIVE DIAGNOSIS:large piece of chicken in the distal esophagus. PROCEDURE NAME:EGD with dislodgement of food bolus. BLOOD LOSS:None. COUNTS:Correct. DISPOSITION: The patient was extubated in the OR and taken to the PACU in fair condition. PROCEDURE: The patient was brought into the OR, placed supine on the OR table. After establishment of general endotracheal anesthesia, the head of the bed was raised to about 45 degrees. The gastroscope was advanced through the bite block, into the oropharynx and down the esophagus. There was no evidence of any strictures in the mid esophagus to distal esophagus. There was a large piece of chicken, it was easily pushed into the stomach. The stomach did not appear inflamed. The scope was advanced through the pylorus and into the duodenum. The duodenal bulb and sweep appeared normal. The scope was then removed, there was no evidence of any gastric or esophageal varices. There was no evidence of any strictures. The patient should continue on clear liquids until the morning and then he may start a regular diet. As discussed before the case, the patient needs to cut his food into smaller pieces, chew longer and drink fluids in between sips. [facility] Signed and Approved by: DR LUIS LOPEZ . 07/10/2021 14:36:00 [facility] Evaluation note Note Date & Type Note Facility Evaluation note Diagnosis Preop examination- Primary Unspecified pre-operative examination Preop examination Unspecified pre-operative examination documented in this encounter [facility] Summary Purpose Family History No Family History Records FoundNo Family History Records FoundNo Family History Records FoundNo Family History Records Found Advance Directives No Advanced Directives Records FoundNo Advanced Directives Records FoundNo Advanced Directives Records FoundNo Advanced Directives Records Found Reason for Referral Specialty Diagnoses / Procedures Referred By Contac t Referred To Contact Diagnoses Preop examination Procedures ECG 12 lead Kwabena Camacho MD [address] [place] [address] Referral ID Status Reason Start Date Expiration Date V isits Requested Visits Authorized [id number] Pending Review 08/07/2023 08/06/2024 1 1 Additional Source Comments (unrecognized sect ion and content) No Status Records FoundNo Status Records FoundNo Status Records FoundNo Status Records Found INFORMATION SOURCE (unrecogn ized section and content) DATE CREATED AUTHOR 07/19/2021 [facility] DATE CREATED AUTHOR AUTHOR'S ORGANIZ ATION 08/07/2021 [facility] DATE CREATED AUTHOR AUTHOR'S ORGANIZ ATION 08/09/2023 [facility] EPIC DATE CREATED AUTHOR AUTHOR'S ORGANIZ ATION 08/10/2023 [facility] Care Teams (unrecognized sec tion and content) Window Caser Relationship Specialty Start Date End Date Carly Stockton, ENERGY EFFICIENCY ENGINEER-DIGITAL PRODUCT SPECIALIST [address], [place] [id number] PCP - General Family Medicine 05/08/21 FOR RECORDS PERTAINING TO PATIENTS WHO ARE OR HAVE BEEN ENROLLED IN A CHEMICAL DEPENDENCY/SUBSTANCEABUSE PROGRAM, SOME INFORMATION MAY BE OMITTED. This clinical summary was aggregated from multiple sources. Caution should be exercised in using it in the provision of clinical care. This summary normalizes information from multiple sources, and as a consequence, information in this document may materially change the coding, format and clinical context of patient data. In addition, data may be omitted in some cases. CLINICAL DECISIONS SHOULD BE BASED ON THE PRIMARY CLINICAL RECORDS. [employer] provides no warranty or guarantee of the accuracy or completeness of information in this document.
[2023-08-11 16:19] LABS: Basophils Percent Auto 0.4 % (0.2-2.0); Eosinophils Absolute Auto 0.2 10^3/uL (0.0-0.7); Eosinophils Percent Auto 4.2 % (0.9-7.0); Hematocrit 42.2 % (42.0-54.0); Hemoglobin 14.3 g/dL (14.0-18.0); Immature Granulocytes Abs Auto 0.02 10^3/uL (0.00-0.03); Immature Granulocytes Pct Auto 0.4 % (0.0-0.5); Lymphocytes Absolute Auto 1.5 10^3/uL (1.2-3.8); Lymphocytes Percent Auto 29.4 % (20.5-60.0); Mean Corpuscular HGB Conc 33.9 g/dL (29.9-35.2); Mean Corpuscular Hemoglobin 29.3 pg (25.9-34.0); Mean Corpuscular Volume 86.5 fL (80.0-94.0); Mean Platelet Volume 9.3 fL (9.5-13.5); Monocytes Absolute Auto 0.6 10^3/uL (0.3-0.8); Monocytes Percent Auto 11.9 % (1.7-12.0); Neutrophils Absolute Auto 2.7 10^3/uL (1.4-6.5); Neutrophils Percent Auto 53.7 % (43.0-75.0); Platelet Count 287 10^3/uL (150-450); Red Blood Count 4.88 10^6/uL (4.70-6.10); Red Cell Distribution Width 12.4 % (11.0-15.0)
[2023-08-11 16:40] LABS: Alanine Aminotransferase 44 U/L (16-63); Albumin Globulin Ratio 0.9; Albumin Level 3.5 g/dL (3.4-5.0); Alkaline Phosphatase 101 U/L (46-116); Anion Gap 11.7; Aspartate Amino Transferase 19 U/L (15-37); BUN Creatinine Ratio 22.5; Bilirubin Total 0.5 mg/dL (0.2-1.0); Calcium 8.9 mg/dL (8.5-10.1); Carbon Dioxide 27.7 mmol/L (21.0-32.0); Chloride 104 mmol/L (98-107); Estimated GFR (African America >60 (>=60); Estimated GFR (Non-African Ame >60 (>=60); Globulin 3.8 g/dL; Glucose 96 mg/dL (74-106); Potassium 4.4 mmol/L (3.5-5.1); Sodium 139 mmol/L (136-145); Total Protein 7.3 g/dL (6.4-8.2)
== END 2023-08-11 16:06 | disposition home or self-care (01) ==
LOC: LAB 16:07
PROVIDERS: PCP Nurse Practitioner Family; Visit Provider Nurse Practitioner Family
DX: Z01.89 Encounter for other specified special examinations (principal)
CPT/HCPCS: 36415; 80053; 85025